=== PATIENT | male | born 1985 | race African-American/Black ===

== ENCOUNTER 2019-12-01 19:53 | Emergency (ER) | payer OTHER ==
[2019-12-01 19:58] VITALS: BP 118/77; PULSE 75; RESP 18; TEMP 97.9
[2019-12-01] MEDS ORDERED: FLUORESCEIN STRIPS 1 MG STRIP RIGHT EYE ONE (20:22)
[2019-12-01] MEDS ORDERED: PROPARACAINE 0.5% OPHTH DROPS 15 ML BTL RIGHT EYE STA (20:23)
[2019-12-01] MEDS ORDERED: diphenhydrAMINE 50 MG CAP PO STA (20:42)
--- NOTE | 2019-12-01 20:47 | ED ---
Eye Problem HPI - General Chief complaint: Eye Problems Stated complaint: [facility] RT eye swelling Source: patient Mode of arrival: ambulatory Limitations: no limitations - History of Present Illness Initial comments: 33yo male presenting for right eye foreign body. 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 One flew into his eye. He states he rmoved contact lens and bug came out. Patient states his eye immediately became irritated and swollen> Patient denies experiencing any pain/symptoms prior to this incident, denies drainage or previous redness. 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 Upon arrival patient protecting right eye but appears well. Denies GALICIA, N/V. - Related Data Previous Rx's Medication Instructions Recorded HYDROcodone/APAP 5-325MG [[place] 1 each PO Q6HR PRN #10 tab 07/10/15 5-325] Amoxicillin/Potassium Clav 1 tab PO Q12HR #20 tab 02/08/16 [Augmentin 875-125 Tablet] Urahpryg-Vvqcfcedm-Ww Otic 3 drops BOTH EARS TID #10 ml 02/08/16 [Cortisporin Otic Soln] Erythromycin Ophth Oint [Romycin 1 applic RIGHT EYE QID 3 Days #1 12/01/19 Ophth Oint] tube predniSONE 50 mg PO DAILY 2 Days #2 tab 12/01/19 Allergies Allergy/AdvReac Type Severity Reaction Status Date / Time No Known Allergies Allergy Verified 12/01/19 19:58 Review of Systems ROS Statement: Those systems with pertinent positive or pertinent negative responses have been documented in the HPI. ROS Other: All systems not noted in ROS Statement are negative. Past Medical History Past Medical History: Hypertension Additional Past Medical History / Comment(s): insomnia, rhabdomyolysis History of Any Multi-Drug Resistant Organisms: None Reported Past Surgical History: No Surgical Hx Reported Past Psychological History: Anxiety Smoking Status: Former smoker Past Alcohol Use History: None Reported Past Drug Use History: None Reported, Marijuana General Exam - General Exam Comments Initial Comments: General: The patient is awake and alert, in no distress Eye: +3 mm pupils are equal, round and reactive to light, extra-ocular movements are intact. No nystagmus. There is normal conjunctiva bilaterally. No signs of icterus. Gastrointestinal: Soft, non-distended, non-tender abdomen without masses or organomegaly noted. There is no rebound or guarding present. Some chemosis present, swelling below the eye. No retained FB or obvious corneal abrasion noted on the fluorescein examination. No cell and flare. No corneal ulceration. Musculoskeletal: Normal ROM, no tenderness. Strength 5/5. Sensation intact. Radial pulses equal bilaterally 2+. Neurological: A&O x 3. CN II-XII intact, There are no obvious motor or sensory deficits. Coordination appears grossly intact. Speech is normal. Skin: Skin is warm and dry and no rashes or lesions are noted. Psychiatric: Cooperative, appropriate mood & affect, normal judgment. Limitations: no limitations Course Vital Signs 12/01/19 19:56 Temperature 97.9 F Pulse Rate 75 Respiratory 18 Rate Blood Pressure 118/77 O2 Sat by Pulse 97 Oximetry Medical Decision Making - Medical Decision Making 33-year-old male presenting today for chief complaint of right eye. No retained FB. No ulceration. No abrasion. Some chemosis noted most likely due to contact irritation with insect. Patient given bendaryl, topical abx and instruction to refrain from use of contact lens until ophthalmology follow-up and clearance if symptoms are worsening patient is is to immediately return to the emergency department otherwise patient is stable for discharge with outpatient follow-up. Patient agreeable to care plan and discharge at this time. Dr. hCristianson which whom i discussed case with agreeable to care plan and discharge. Disposition Clinical Impression: Foreign body of right eye, Allergic reaction Disposition: HOME SELF-CARE Condition: Good Additional Instructions: Please use medication as discussed. Please follow-up with ophthalmology in the next 1-2 days. Use glasses no contact lens please! HIGH RISK FOR INFECTION IF YOU USE CONTACT LENS--DISCONTINUE USE UNTIL YOU SEE EYE DOCTOR. Please return to emergency room if the symptoms increase or worsen or for any other concerns. Prescriptions: predniSONE 50 mg PO DAILY 2 Days #2 tab Erythromycin Ophth Oint [Romycin Ophth Oint] 1 applic RIGHT EYE QID 3 Days #1 tube Is patient prescribed a controlled substance at d/c from ED?: No Referrals: None,Stated [Primary Care Provider] - 1-2 days Madison Gamino MD [STAFF PHYSICIAN] - 1-2 days Time of Disposition: 20:46
[2019-12-01] MEDS ORDERED: ERYTHROMYCIN 5 MG/GM OPHTH OINT 3.5 GM TUBE RIGHT EYE SCH (21:00)
== END 2019-12-01 21:24 | disposition home or self-care (01) ==
LOC: EC 19:53
DX: T15.91XA Foreign body on external eye, part unspecified, right eye, initial encounter (principal); T78.40XA Allergy, unspecified, initial encounter; Z87.891 Personal history of nicotine dependence; Y93.89 Activity, other specified; Y92.69 Other specified industrial and construction area as the place of occurrence of the external cause; Y99.0 Civilian activity done for income or pay
CPT/HCPCS: 99283